=== PATIENT | female | born 1940 | race Caucasian/White ===

== ENCOUNTER 2020-02-18 00:45 | Inpatient (IN) | payer MEDICARE, OTHER ==
[~2020-02-18] VITALS: Ht 160 cm; Wt 75.4 kg
[~2020-02-18 00:45] MED LIST: DIVA250T4 PO; OXYC-307 PO; TELM40TA PO
[2020-02-18] MEDS ORDERED: ONDANSETRON 2MG/ML, 2ML IVPush ONE (01:00)
[2020-02-18] MEDS ORDERED: MORPHINE SULFATE 4 MG/ML, 1ML IVPush PRN (01:00)
[2020-02-18] MEDS ORDERED: ONDANSETRON 2MG/ML, 2ML ONE ×2 (01:16→15:11)
[2020-02-18] MEDS ORDERED: MORPHINE SULFATE 4 MG/ML, 1ML ONE (01:17)
[2020-02-18] MEDS: POTASSIUM CHLORIDE 10 MEQ in SODIUM CHLORIDE 0.9% 1,000 ML IV SCH ×3 (01:25→22:30)
--- NOTE | 2020-02-18 01:35 | NUR ---
MEDICATED PER NOV. REPORT GIVEN TO MADISON CHANDLER.
--- NOTE | 2020-02-18 01:38 | NUR ---
PT DESATTING AFTER MORPHINE, PLACED 2L NC, NOW 98%.
[2020-02-18 02:20] VITALS: BP 154/87
[2020-02-18] MEDS ORDERED: ACETAMINOPHEN 325 MG TABLET PO PRN ×2 (02:30→16:30)
[2020-02-18] MEDS ORDERED: morphine SULFATE 10 MG/ML, 1ML IVPush PRN (02:30)
[2020-02-18] MEDS ORDERED: LABETALOL 5MG/ML, 20ML IVPush PRN (02:30)
[2020-02-18] MEDS ORDERED: ONDANSETRON 2MG/ML, 2ML IVPush PRN (02:30)
[2020-02-18 07:45] VITALS: BP 134/83
[2020-02-18] MEDS: SENNA/DOCUSATE TABLET PO SCH (07:56)
[2020-02-18] MEDS: DIVALPROEX 250 MG TABLET.DR PO SCH (07:56)
[2020-02-18] MEDS: LOSARTAN 50MG TABLET PO SCH (07:56)
[2020-02-18 13:21] VITALS: BP 162/92
[2020-02-18] MEDS ORDERED: FENTANYL PF 250 MCG/5ML ONE (14:43)
[2020-02-18] MEDS ORDERED: CHLORHEXIDINE 15 ML UDC MM STA (15:01)
[2020-02-18] MEDS ORDERED: CHLORHEXIDINE 15 ML UDC ONE (15:02)
[2020-02-18] MEDS ORDERED: CEFAZOLIN 1,000 MG ONE (15:11)
[2020-02-18] MEDS ORDERED: EPHEDRINE 50 MG/ML, 1ML ONE (15:11)
[2020-02-18] MEDS ORDERED: ROCURONIUM 10 MG/ML,10ML ONE (15:11)
[2020-02-18] MEDS ORDERED: DEXAMETHASONE 4 MG/ML, 1ML ONE (15:11)
[2020-02-18] MEDS ORDERED: PROPOFOL 10 MG/ML, 20ML ONE (15:11)
[2020-02-18] MEDS ORDERED: NORTRIPTYLINE 25 MG CAPSULE ONE (15:11)
[2020-02-18] MEDS ORDERED: LIDOCAINE PF 2%, 5ML ONE (15:11)
[2020-02-18] MEDS ORDERED: TRANEXAMIC ACID 100 MG/ML, 10ML ONE (15:35)
[2020-02-18] MEDS ORDERED: HYDROmorphone 1 MG/ML, 1ML INJ IVPush PRN (16:30)
[2020-02-18] MEDS ORDERED: MIDAZOLAM 1 MG/ML, 2ML IV PRN (16:30)
[2020-02-18] MEDS ORDERED: LABETALOL 5MG/ML, 20ML IV PRN (16:30)
[2020-02-18] MEDS ORDERED: hydrALAzine 20 MG/ML, 1ML IV PRN (16:30)
[2020-02-18] MEDS ORDERED: ALBUTEROL SULFATE 2.5 MG/3 ML NPPB PRN (16:30)
[2020-02-18] MEDS ORDERED: PROMETHAZINE 25 MG/ML, 1ML IVPush PRN (16:30)
[2020-02-18] MEDS ORDERED: OXYcodone 5 MG/5 ML ORAL.SOL UDC PO PRN (16:30)
[2020-02-18] MEDS ORDERED: MEPERIDINE/PF 25MG/0.5ML IVPush PRN (16:30)
[2020-02-18] MEDS ORDERED: BUPIVACAINE/PF 0.5% ONE (17:23)
[2020-02-18] MEDS ORDERED: FENTANYL PF 100 MCG/2ML ONE (17:45)
[2020-02-18] MEDS ORDERED: OXYcodone 5 MG/5 ML ORAL.SOL UDC ONE (17:45)
[2020-02-18] MEDS: FENTANYL PF 100 MCG/2ML IV PRN ×3 (18:10→18:40)
[2020-02-18 20:16] VITALS: BP 150/89
[2020-02-18] MEDS: OXYcodone/APAP 5/325MG TABLET PO PRN (22:28)
[2020-02-18] MEDS: CEFAZOLIN PMX 1GM/50ML 50 ML IV SCH (23:50)
[2020-02-19 00:05] VITALS: BP 118/74
[2020-02-19 03:43] VITALS: BP 137/88
[2020-02-19 08:00] VITALS: BP 129/71
[2020-02-19] MEDS: DIVALPROEX 250 MG TABLET.DR PO SCH (08:11)
[2020-02-19] MEDS: SENNA/DOCUSATE TABLET PO SCH (08:11)
[2020-02-19] MEDS: CEFAZOLIN PMX 1GM/50ML 50 ML IV SCH ×3 (08:12→15:34)
[2020-02-19] MEDS: LOSARTAN 50MG TABLET PO SCH (08:12)
[2020-02-19] MEDS: OXYcodone/APAP 5/325MG TABLET PO PRN ×3 (08:14→17:06)
[2020-02-19] MEDS ORDERED: ENOXAPARIN 40 MG/0.4 ML SQ SCH (09:30)
[2020-02-19 10:07] LABS: BASOPHILS # (AUTO) 0.01 x10^3/uL (0-0.1); BASOPHILS % (AUTO) 0 % (0-1); EOSINOPHILS % (AUTO) 0 % (1-7); LYMPHOCYTES # (AUTO) 1.01 x10^3/uL (1-3.4); LYMPHOCYTES % (AUTO) 12 % (22-44); MD NO; MEAN CORPUSCULAR HEMOGLOBIN 31.6 pg (27.0-34.8); MEAN CORPUSCULAR HGB CONC 33.6 g/dL (32.4-35.8); MEAN CORPUSCULAR VOLUME 94.1 fL (80-100); MEAN PLATELET VOLUME 10.1 fL (7.4-10.4); MONOCYTES # (AUTO) 0.92 x10^3/uL (0.2-0.8); MONOCYTES % (AUTO) 11 % (2-9); NEUTROPHILS # (AUTO) 6.61 x10^3/uL (1.8-6.8); NEUTROPHILS % (AUTO) 77 % (42-75); PLATELET COUNT 132 x10^3/uL (130-400); RED BLOOD COUNT 3.44 x10^6/uL (3.82-5.3); RED CELL DISTRIBUTION WIDTH 14.7 % (9.6-15.2)
[2020-02-19 10:16] LABS: ANION GAP 8 mmol/L (5-15); CALCIUM 8.1 mg/dL (8.5-10.1); CHLORIDE 106 mmol/L (98-107)
[2020-02-19 12:40] VITALS: BP 125/81
[2020-02-19] MEDS ORDERED: ENOX40SY4 SQ (16:01)
== END 2020-02-19 17:34 | disposition home health service (06) | DRG 470 ==
LOC: ED 01:05 → EDIP 01:15 → 4NE 02:15
PROVIDERS: ADMIT Family Medicine; ATTEND Internal Medicine
PROC: 0SRS0J9 Replacement of Left Hip Joint, Femoral Surface with Synthetic Substitute, Cemented, Open Approach (ICD-10-PCS; principal; 2020-02-18 15:30)
DX: S72.002A Fracture of unspecified part of neck of left femur, initial encounter for closed fracture (principal); I10 Essential (primary) hypertension; G40.909 Epilepsy, unspecified, not intractable, without status epilepticus; Z87.891 Personal history of nicotine dependence; W18.39XA Other fall on same level, initial encounter; Y93.89 Activity, other specified; Z88.8 Allergy status to other drugs, medicaments and biological substances; Z91.040 Latex allergy status; Y92.89 Other specified places as the place of occurrence of the external cause; Y99.8 Other external cause status
CPT/HCPCS: 36415; 72170; 80048; 85025; 96374; C1713; G0378; J0690; J1100; J1650; J2405; J2704; J3010; J3480; C1762; C1776; J2270; J7030